=== PATIENT | female | born 1965 | race African-American/Black ===

== ENCOUNTER 2016-09-12 08:11 | Emergency (ER) | payer OTHER ==
--- NOTE | ~2016-09-12 | CT4 ---
[facility] A Service of [facility] RADIOLOGY TEXT RESULTS PATIENT: DORON MEDINA LOCATION: [facility] : 63 UNIT #: [id number] AGE: [address]: Violeta Ramirez APRN SEX: F ORDER DR: [id number] [facility] [address] [facility]. [place], [place] [address] [id number] MR#: [id number] Acc #: [id number] NAME: DORON MEDINA : 1965 SEX: F STUDY DATE/TIME: 09/12/2016 10:19 UNIT: [facility] ROOM: STUDY DESCRIPTION: CT Abd and Pelv Wo Cont Attending Physician: Violeta Ramirez A.P.R.N. Ordering Physician: Janine Pandya M.D. Primary Care Physician: Gloria Phillip A.P.R.N. MEDICAL IMAGING REPORT This report is preliminary unless electronic signature is present EXAM CT abdomen and pelvis without contrast INDICATIONS Abdominal pain for 2 weeks. No comparison. TECHNIQUE Axial 5-mm images were obtained through the abdomen and pelvis without IV or oral contrast. This CT exam was performed with one or more of the following radiation dose reduction techniques: Automatic exposure control, adjustment of mA and/or kV according to patient size, and iterative reconstruction. FINDINGS There is some minimal interstitial prominence in both lung bases medially. This is fairly faint but in the right lower lobe it is about 4.2 cm in diameter and it is possible this could represent an acute infiltrate. There are patchy areas of similar interstitial prominence throughout both lower lobes. The liver, gallbladder, spleen, pancreas, adrenal glands and kidneys are normal. The aorta is normal in size and there is no adenopathy. The appendix is normal. The bowel is normal. The uterus and adnexal regions and bladder are normal. The bones are unremarkable. IMPRESSION 1. Patchy areas of interstitial prominence in both lower lobes, which could be chronic fibrosis or minimal interstitial infiltrates. 2. Normal appendix. 3. No cause for the patient's abdomen pain is identified. Dictated by... Myke Yuen M.D. [facility] A Service of [facility] RADIOLOGY TEXT RESULTS PATIENT: DORON MEDINA LOCATION: [facility] : 63 UNIT #: [id number] AGE: [address]: Violeta Ramirez APRN SEX: F ORDER DR: THIS IS AN ELECTRONICALLY VERIFIED REPORT Myke Yuen M.D. at 09/13/2016 7:26 AM CARL/drake TD: 09/12/2016 17:15 JOB #: [id number] MEDICAL IMAGING REPORT Page 1 of 1 COPY
--- NOTE | ~2016-09-12 | EKG ---
PATIENT: JOSS MEDINANDA UNIT #: [id number] Ventricular Rate: 88 BPM Atrial Rate: 88 BPM P-R Interval: 142 ms QRS Duration: 76 ms Q-T Interval: 350 ms QTC Calculation(Bezet): 423 ms P [place]: 52 degrees Calculated R [place]: 9 degrees Calculated T Brow[place]: 9 degrees Diagnosis Line: Normal sinus rhythm Diagnosis Line: Nonspecific ST and T wave abnormality Diagnosis Line: Abnormal ECG Diagnosis Line: No previous ECGs available Diagnosis Line: Confirmed by PATRICIA OLSEN MD ([id number]) on Diagnosis Line: 09/12/2016 10:18:33 PM INTERPRETING MD: CHRISTINA
[~2016-09-12 08:11] MED LIST: ACTOS PO; ASPIRIN PO; AVANDIA PO; COGENTIN PO; COLACE PO; DEPAKOTE PO; FLEXERIL10 M1 PO; GLUCOTROL PO; HALDOL PO; ORUDIS75 M1 DOB; ZOCOR PO
[2016-09-12 09:02] LABS: POC - CKMB <1.0 ng/mL (0.0-7.9); POC - TROPONIN <0.05 ng/mL (<=0.05)
[2016-09-12 09:14] LABS: URINE SOURCE CLEAN CATCH
[2016-09-12 09:20] LABS: BASOPHIL% 0.3 % (0-2.5); EOSINOPHIL# 0.1 X10e3 (0-0.7); EOSINOPHIL% 0.6 % (0.0-7.0); HEMATOCRIT 34.8 % (35.0-45.0); HEMOGLOBIN 11.7 gm/dL (12.0-16.0); LYMPHOCYTE# 2.7 X10e3 (1.0-3.5); LYMPHOCYTE% 31.4 % (17.0-45.0); MEAN CELL VOLUME 85.3 FL (83-96); MEAN CORPUSCULAR HEMOGLOBIN 28.7 PG (28-34); MEAN CORPUSCULAR HGB CONC 33.6 g/dL (30-36); MEAN PLATELET VOLUME 7.7 FL (6.5-11.5); MONOCYTE# 0.6 X10e3 (0-1.0); MONOCYTE% 7.6 % (3.0-12.0); NEUTROPHIL# 5.1 X10e3 (1.5-7.1); NEUTROPHIL% 60.1 % (40-75); PLATELET COUNT 285 X10e3 (140-420); RED BLOOD COUNT 4.08 X10e (3.90-5.30); RED CELL DISTRIBUTION WIDTH 14.2 % (11.0-15.5); WHITE BLOOD COUNT 8.5 X10e3 (4.0-10.5)
[2016-09-12 09:27] LABS: DIFF IND NO
[2016-09-12 09:30] LABS: URINE APPEARANCE CLOUDY; URINE BLOOD 2+ (NEG); URINE COLOR BROWN; URINE GLUCOSE 100 MG/DL (NORM); URINE KETONE NEG (NEG); URINE LEUKOCYTE ESTERASE 3+ (NEG); URINE NITRATE NEG (NEG); URINE PROTEIN 1+ (NEG); URINE UROBILINOGEN NORM (NORM)
[2016-09-12 09:33] LABS: URINE BILIRUBIN NEG (NEG)
[2016-09-12 09:53] LABS: ALBUMIN SERUM 3.3 g/dL (3.5-5.0); BILIRUBIN, DIRECT 0.1 mg/dL (0.0-0.2); BILIRUBIN,INDIRECT 0.4 mg/dL (0.0-0.9); BILIRUBIN,TOTAL 0.5 mg/dL (0.2-2.0); BUN/CREATININE RATIO 10.55; CALCIUM SERUM 9.1 mg/dL (8.4-10.2); CREATININE SERUM 1.8 mg/dL (0.6-1.4); GLOM FILT RATE Estimated 36.9 mL/min (>60); POTASSIUM 4.3 mmol/L (3.5-5.1); PROTEIN TOTAL SERUM 6.6 g/dL (6.0-8.3)
[2016-09-12 09:59] LABS: CULTURE INDICATED? YES; URBCS1 AUWI 50-100 /[HPF] (0-2); URINE BACTERIA AUWI 3+ (NEGATIVE); URINE SQUAMOUS EPITHELIAL CELL MODERATE /[HPF]; UWBCS1 AUWI 100-200 (0-5)
[2016-09-12 10:00] LABS: URINE AMORPHOUS SEDIMENT AMORP URATES; URINE MUCUS PRESENT; URINE YEAST PRESENT
== END 2016-09-12 11:38 | disposition home or self-care (01) ==
LOC: CED 08:11
PROVIDERS: Nurse Practitioner
DX: N30.00 Acute cystitis without hematuria (principal); E11.22 Type 2 diabetes mellitus with diabetic chronic kidney disease; E78.5 Hyperlipidemia, unspecified; I12.9 Hypertensive chronic kidney disease with stage 1 through stage 4 chronic kidney disease, or unspecified chronic kidney disease; N18.9 Chronic kidney disease, unspecified; F17.210 Nicotine dependence, cigarettes, uncomplicated; Z98.51 Tubal ligation status
CPT/HCPCS: 36415; 74176; 80048; 80076; 81003; 82150; 82553; 83690; 84484; 84703; 85025; 87086; 87088; 87186; 93005; 96361; 96374; 96375; 99284; C9113; J2270; J2405

== ENCOUNTER 2016-09-18 11:00 | Inpatient (IN) | payer OTHER ==
--- NOTE | ~2016-09-18 | CR2 ---
[facility] A Service of [facility] RADIOLOGY TEXT RESULTS PATIENT: DORON MEDINA LOCATION: [place] [address]- : 63 UNIT #: [id number] AGE: [address]: Cindy Pang MD SEX: F ORDER DR: [id number] [facility] [address] [facility]. [place], [place] [address] [id number] I MR#: [id number] Acc #: [id number] NAME: DORON MEDINA : 1965 SEX: F STUDY DATE/TIME: 09/18/2016 12:45 UNIT: [facility] ROOM: [facility] STUDY DESCRIPTION: CR Abdomen Acute Series Attending Physician: Cindy Pang M.D. Ordering Physician: Dwain Nielsen M.D. Primary Care Physician: Marko ChampagneRVlad MEDICAL IMAGING REPORT This report is preliminary unless electronic signature is present EXAM Acute abdomen series with chest. HISTORY SUPPLIED Two week history of abdominal pain, nausea, vomiting and chest congestion. FINDINGS AP chest is performed and is normal. Flat upright views of the abdomen show a large amount of gas present within the colon. There are a few air-filled loops of small bowel within the abdomen as well. The overall pattern is nonspecific. It does not appear to be obstructive. CONCLUSION 1. Normal chest. 2. Mild gaseous distension particularly in the colon which may reflect a mild ileus. There is no radiographic evidence of an obstruction. Dictated by... Robb Nguyen M.D. THIS IS AN ELECTRONICALLY VERIFIED REPORT Robb Nguyen M.D. at 09/19/2016 9:17 AM EVELINE/leesa TD: 09/18/2016 18:21 JOB #: [id number] MEDICAL IMAGING REPORT Page 1 of 1 COPY
--- NOTE | ~2016-09-18 | US5 ---
[facility] A Service of [facility] RADIOLOGY TEXT RESULTS PATIENT: DORON MEDINA LOCATION: [facility]- : 63 UNIT #: [id number] AGE: [address]: Kristine Mares MD SEX: F ORDER DR: [id number] [facility] [address] [facility]. [place], [place] [address] [id number] I MR#: [id number] Acc #: [id number] NAME: DORON MEDINA : 1965 SEX: F STUDY DATE/TIME: 09/18/2016 15:45 UNIT: [facility] ROOM: [facility] STUDY DESCRIPTION: US Abdominal Complete Attending Physician: Cindy Pang M.D. Ordering Physician: Cindy Pang M.D. Primary Care Physician: Marko ChampagneRVlad MEDICAL IMAGING REPORT This report is preliminary unless electronic signature is present EXAM Complete abdominal ultrasound date of study 09/18/[address] abdomen and pelvis 09/12/2016 CLINICAL HISTORY Two week history of abdominal pain. FINDINGS Hepatic parenchymal echotexture is normal. There is no intrahepatic biliary ductal dilatation. The gallbladder is normal without stones, wall thickening or pericholecystic fluid and extrahepatic common duct is normal. The right kidney is normal in size and echotexture without solid mass, calcification or hydronephrosis. The inferior vena cava appears normal. The aorta is normal in caliber. The distal aorta is partially obscured by bowel gas. The left kidney is normal in size and echotexture without mass, calcification or hydronephrosis. The spleen is normal in size. IMPRESSION Normal negative complete abdominal ultrasound. Dictated by... Fidel Sales M.D. THIS IS AN ELECTRONICALLY VERIFIED REPORT Fidel Sales M.D. at 09/28/2016 4:00 PM TEV/rnr [facility] A Service of [facility] RADIOLOGY TEXT RESULTS PATIENT: ADAM,URONDA LOCATION: [facility] 472-01 : 63 UNIT #: [id number] AGE: [address]: Kristine Mares MD SEX: F ORDER DR: TD: 09/18/2016 23:35 JOB #: [id number] MEDICAL IMAGING REPORT Page 1 of 1 COPY
--- NOTE | ~2016-09-18 | EKG ---
PATIENT: ADAM URONDA UNIT #: [id number] Ventricular Rate: 88 BPM Atrial Rate: 88 BPM P-R Interval: 146 ms QRS Duration: 76 ms Q-T Interval: 340 ms QTC Calculation(Bezet): 411 ms P [place]: 41 degrees Calculated R [place]: 2 degrees Calculated T [place]: 12 degrees Diagnosis Line: Normal sinus rhythm Diagnosis Line: Possible Anterior infarct , age undetermined Diagnosis Line: Abnormal ECG Diagnosis Line: When compared with ECG of 12-SEP-2016 08:50, Diagnosis Line: No significant change was found Diagnosis Line: Confirmed by FARTUN WILLINGHAM MD ([id number]) on 09/19/2016 Diagnosis Line: 4:45:21 PM INTERPRETING MD: MAULIK MCCALLUM
--- NOTE | ~2016-09-18 | CO ---
Unit #: [id number] #: [id number] Patient: DORON MEDINA [id number] [address] [place], [place] [address] [id number] I MR#: [id number] NAME: DORON MEDINA ROOM: [facility] Age: 51 Sex: F Admission Date: 09/18/2016 : 1965 Attending Physician: Kristine Mares M.D. Primary Care Physician: Gloria Phillip A.P.R.N. Consultation Date: 09/18/2016 CONSULTATION REPORT REASON FOR CONSULTATION Hyponatremia and bfejw-[id number] kidney injury. HISTORY OF PRESENT ILLNESS The patient is a 51-year-old female with a prior history of chronic kidney disease state 2-3, with a baseline creatinine ranging from 1.1 to 1.3 over the last couple of years. The patient also has a history of chronic hyponatremia with sodiums ranging between 127 and 130 on outpatient labs. Of note, the patient recently was seen in [facility] on 09/08/2016 by our nurse practitioner, Cele Parker. At that visit she was noted to have a sodium of 130 and a creatinine of 1.3. Prior to that visit, the patient's Lasix had been discontinued by her primary care provider and at that visit on 09/08/2016 her HCTZ was also discontinued because of her persistent hyponatremia. The patient was initially evaluated for chronic kidney disease by my colleague, Dr. Iglesias, in September 2015. At that time her workup included a renal ultrasound which demonstrated no obstruction and 13 cm kidneys bilaterally. She had minimal proteinuria with a urine protein to creatinine ratio of 178 mg/g, negative hepatitis panel and negative HIV and negative S pep. However, she did have a mildly elevated free light chain ratio at 1.75. Per notes she was referred to hematology for this. However, the patient denies ever seeing them in followup. It was felt that her underlying kidney disease was most likely secondary to a combination of microvascular disease from hypertension and diabetes. The patient presented to [facility] this morning with complaint of abdominal pain and cramping, mostly epigastric, as well as nausea, decreased p.o. intake. She did also have an episode of vomiting a few days prior to presentation. Since admission the patient has been on normal saline. Of note, her initial sodium in the emergency room was 123 and has increased to 126 with normal saline. The patient currently states her abdominal pain improved. She is tolerating a clear liquid diet. PAST MEDICAL HISTORY 1. Chronic kidney disease stage 2-3 as above. 2. Type 2 diabetes for approximately 10 years. 3. Hypertension for approximately 10 years. 4. Schizoaffective disorder. 5. Tobacco abuse. 6. The patient also reports a family history positive for malignancy. She denies any kidney disease, diabetes or high blood pressure in her family. SOCIAL HISTORY Positive for tobacco. The patient denies any alcohol or illicit drug use. Unit #: [id number] #: [id number] Patient: GAGE MEDINAA ALLERGIES No known drug allergies. HOME MEDICATIONS 1. Gabapentin 300 mg b.i.d. 2. Norvasc 5 mg daily. 3. Zofran 8 mg t.i.d. p.r.n. 4. Lipitor 40 mg daily. 5. Colace 100 mg daily. 6. Lantus 32 units at bedtime. 7. Folic acid 1 mg daily. 8. Metformin 750 mg. The patient takes 2 tablets daily. 9. Vitamin D3 2000 units daily. 10. Ziprasidone 80 mg b.i.d. 11. Divalproex 500 mg b.i.d. 12. Carvedilol 3.125 mg b.i.d. 13. Benadryl 25 mg at nighttime. 14. Haldol 10 mg b.i.d. 15. Cogentin 1 mg at night. 16. Lisinopril 30 mg daily. REVIEW OF SYSTEMS Negative except as noted in history of present illness. PHYSICAL EXAMINATION GENERAL: The patient is well nourished and in no acute distress. VITALS: Temperature 98.4, blood pressure 106/77, heart rate 86, respiratory rate 16, saturating 95% on room air. HEENT: The patient is normocephalic, atraumatic. Pupils are equal, round and reactive to light. Mucous membranes are dry. NECK: Supple with no jugular venous distension. HEART: Regular rate and rhythm with no murmurs, gallops or rubs. ABDOMEN: Soft, nontender and nondistended with positive bowel sounds. EXTREMITIES: No cyanosis, clubbing or edema. NEUROLOGIC: The patient is alert and oriented times three with no focal deficits. PSYCHIATRIC: The patient is cooperative and has a normal affect. DIAGNOSTIC STUDIES LABORATORY: On admission, sodium 123, potassium 5.3, chloride 93, bicarbonate 22, BUN 15, creatinine 1.8, glucose 211, calcium 9, AST 11, ALT 9, alkaline phosphatase 107, bilirubin 0.2, direct bilirubin less than 0.1, indirect 0.1, total protein 7, albumin 3.4, lipase 58. CBC showed white blood cell count 8.9, hemoglobin 12.2, and platelets 290. Urinalysis showed 1.5 leukocyte esterase, 500 glucose and 1 (1) . Serum osmolarity is 267. Lipid were reviewed and her total cholesterol was 83, triglycerides 100, LDL 37, HDL 26. Urine sodium was 51 and urine osmolarity was 518. ASSESSMENT/PLAN 1. Acute kidney injury on chronic kidney disease. This is most likely from volume depletion. I agree with continued IV fluid resuscitation with normal saline and also would recommend holding lisinopril as well as any diuretic agents. Would hold Metformin. Maintain mean arterial pressure greater than 65. 2. Hyponatremia. It appears this is acute on chronic. The patient has outpatient sodiums ranging from around 127 to 130. Her chronic Unit #: [id number] #: [id number] Patient: DORON MEDINA hyponatremia is most likely exacerbated by volume depletion from her acute illness. Her chronic hyponatremia is likely secondary to medications. Of note, she was recently stopped on HCTZ and has been off for a week and a half, so it is less likely that this was contributing. Would continue to hold HCTZ at this time. Also, the patient had been on Haldol and divalproex, which both can lower sodium as well. Given the chronicity of her hyponatremia, will need to avoid rapid correction and will monitor her sodium closely in the next 24 hours. Would avoid correcting by more than 8 mEq. 3. Patient with a history of abnormal free light chain ratio. At this time will repeat S pep and free light chain ratio. If still abnormal, the patient likely will need hematology followup. Thank you very much for this consultation. We will be happy to follow the patient along with you. Dictated by... Malena Lainez M.D. DJChato/gz TD: 09/20/2016 09:31 JOB #: [id number] CONSULTATION REPORT Page 1 of 1 X X CONSULTATION REPORT
--- NOTE | ~2016-09-18 | CO ---
Unit #: [id number] #: [id number] Patient: DORON MEDINA [id number] [address] [place], [place] [address] [id number] I MR#: [id number] NAME: DORON MEDINA ROOM: 472 Age: 51 Sex: F Admission Date: 09/18/2016 : 1965 Attending Physician: Kristine Mares M.D. Primary Care Physician: Gloria Phillip A.P.R.N. Consultation Date: 09/20/2016 CONSULTATION REPORT REASON FOR CONSULTATION Anxiety, depression, and schizophrenia. HISTORY OF PRESENT ILLNESS Ms. Verde is a 51-year-old female, seen on 09/20/2016 in room 472, bed 1 at [facility]. The patient's and a friend were in the room. The patient is lying comfortably in bed, dressed in hospital attire. The patient reports that she carries a diagnosis of anxiety disorder, but according to the H and P the patient has a history of schizophrenia, currently on Haldol. The patient reported that she was admitted with abdominal pain. The patient has a history of diabetes, hypertension, hyperlipidemia, and schizophrenia. The patient reports that she is feeling better. Denied any side effects from medication. Taking her medication regularly. Currently, denied any hallucination or any thoughts of harming self or others. The patient denied any use of any drugs or alcohol. PAST PSYCHIATRIC HISTORY Remarkable for history of depression and schizophrenia, followed by Dr. Grady. MEDICAL HISTORY Remarkable for history of uncontrolled diabetes, hypertension, hyperlipidemia, and schizophrenia. The patient echo showed ejection fraction 55%. MEDICATIONS Gabapentin 300 mg t.i.d., Norvasc, Zofran, Lipitor, Colace, hydrochlorothiazide, Lantus, folic acid, metformin, vitamin D3, Geodon 80 mg b.i.d., divalproex 500 mg b.i.d., carvedilol, Benadryl, haloperidol 5 mg daily, Cogentin 1 mg at bedtime, lisinopril. ALLERGIES No known drug allergies. SUBSTANCE ABUSE HISTORY None. FAMILY HISTORY AND SOCIAL HISTORY The patient has a good support system from family. No history of abuse. No history of any substance abuse. REVIEW OF SYSTEMS Complete review of system is unremarkable. Unit #: [id number] #: [id number] Patient: DORON MEDINA MENTAL STATUS EXAMINATION Vital signs; temperature 98.1, pulse 107, blood pressure 137/85, and oxygen saturation 97%. General appearance; the patient moderately obese, lying comfortably in bed, pleasant, cooperative. Attention span and concentration, fair. Speech; slow in rate and volume, monotone. Oriented in time, place, and person. Mood and affect; sad, dysphoric, flat. Thought process, coherent. Denied any thoughts of harming self or others, but somewhat guarded. Denied any hallucination. Recent and remote memory, fair. Language, intact. Fund of knowledge, fair. Insight and judgment, fair to slightly impaired. DIAGNOSES Psychiatric: 1. Schizophrenia, chronic paranoid type, F20.0. 2. Anxiety disorder, not otherwise specified, F40.01. 3. Mood disorder, not otherwise specified, F32.9. Secondary diagnosis: Deferred. Medical diagnosis: Please refer to H and P. Stressors: Psychosocial stressors. ASSESSMENT/PLAN 1. Supportive psychotherapy and psychoeducation provided to the patient. 2. Educated about benefits and side effects of medication and course and prognosis of illness. 3. Advised to continue with current combination of medication at this time such as Cogentin 1 mg at bedtime, Geodon 80 mg b.i.d., Depakote 500 mg b.i.d., and Haldol. Please feel free to call if any question, telephone #[phone]. Dictated by... Verito Josue/lili TD: 09/21/2016 02:31 JOB #: [id number] CONSULTATION REPORT Page 1 of 1 X Jose Jeffery MD CONSULTATION REPORT
--- NOTE | ~2016-09-18 | HP ---
Unit #: [id number] #: [id number] Patient: DORON MEDINA [id number] [place] [address] [facility]. [place], [place] [address] [id number] I MR#: [id number] NAME: DORON MEDINA ROOM: 94317 Age: 51 Sex: F Admission Date: 09/18/2016 : 1965 Attending Physician: Cindy Pang M.D. Primary Care Physician: Gloria Phillip A.P.R.N. HISTORY AND PHYSICAL CHIEF COMPLAINT Abdominal pain. HISTORY OF PRESENT ILLNESS The patient is a 51-year-old female with a past medical history of diabetes, hypertension, hyperlipidemia, schizophrenia, who presented to the emergency department for evaluation of the above. The patient states that she has had a two week history of abdominal pain. She states that it is in her upper abdomen. She describes it as "cramping." It has been fairly constant in nature. It is exacerbated by eating. There are no alleviating factors. She denies any similar pain. She has had some emesis but none within the past 24 hours. She has been constipated. She thinks her last bowel movement was several days ago. She denies any fever, no cough or cold symptoms. Of note, the patient was seen at [facility] September 12, 2016, for abdominal pain. She was discharged home. She did have a CT of the abdomen and pelvis that day that showed no cause for the patient's abdominal pain. Lipase was 138, amylase 157. Today, acute abdominal series was done and showed findings concerning for possible mild ileus. Sodium was 123, potassium 5.3, lipase of 58. She was given 1 L of normal saline as well as 20 mg of Bentyl, 4 mg of morphine and 4 mg of Zofran. She is being admitted to [facility] for evaluation and further treatment. PAST MEDICAL HISTORY 1. Admission to [facility] more than five years ago for what sounds like small bowel obstruction (no records). 2. Admission to [facility] August 28, 2007, for uncontrolled diabetes. 3. Diabetes. 4. Hypertension. 5. Hyperlipidemia. 6. Schizophrenia, followed by Dr. Grady. 7. Echocardiogram August 29, 2007, was technically limited but showed an ejection fraction of 55%. Mild concentric left ventricular hypertrophy was present. PAST SURGICAL HISTORY Bilateral tubal ligation. SOCIAL HISTORY The patient lives with her . She smokes a half pack of cigarettes Unit #: [id number] #: [id number] Patient: DORON MEDINA daily. She denies alcohol or illicit drug use. FAMILY HISTORY Notable for malignancy. ALLERGIES No known allergies. HOME MEDICATIONS 1. Gabapentin 300 mg twice daily. 2. Norvasc 5 mg daily. 3. Zofran 8 mg t.i.d. 4. Lipitor 40 mg daily. 5. Colace 100 mg daily. 6. Hydrochlorothiazide 25 mg daily. 7. Lantus 32 units at bedtime. 8. Folic acid 1 mg daily. 9. Metformin 2 mg daily. 10. Vitamin D3 2000 units daily. 11. Ziprasidone 80 mg twice daily. 12. Divalproex 500 mg twice daily. 13. Carvedilol 3.125 mg twice daily. 14. Benadryl 25 mg at bedtime. 15. Haloperidol 5 mg daily. 16. Cogentin 1 mg at bedtime. 17. Lisinopril 30 mg daily. REVIEW OF SYSTEMS A complete review of systems is negative except as indicated in the HPI. The patient denies any change in her medications. DIAGNOSTIC STUDIES CARDIOVASCULAR: EKG shows normal sinus rhythm with a rate of 88 beats/minute. IMAGING: Acute abdominal series showed findings concerning for possible mild ileus. CT of the abdomen and pelvis from September 12, 2016, showed no cause for the abdominal pain. LABORATORY: Urine culture from September 12 showed greater than 100,000 E. coli that was ly sensitive. Complete blood count from today is completely normal. Comprehensive metabolic panel notable for sodium of 123, potassium is 5.3, chloride 93, glucose 211, BUN and creatinine 15 and 1.8 respectively, alkaline phosphatase 107, albumin 3.4, lipase 58. Urinalysis today shows 1+ leukocyte esterase, 500 glucose. Troponin is less than 0.05. PHYSICAL EXAMINATION VITAL SIGNS: Temperature is 98.3, pulse 90, respirations 17, blood pressure 101/61. Oxygen saturation 97% on room air. GENERAL: The patient is an -German female who is awake and alert, in no acute distress. Unit #: [id number] #: [id number] Patient: DORON MEDINA HEENT: The head is atraumatic. Mucous membranes are dry. NECK: Supple. Trachea is midline. CARDIOVASCULAR: Regular rate and rhythm. LUNGS: Clear to auscultation bilaterally with no increased work of breathing. ABDOMEN: Mildly distended. She is mildly tender to palpation in the epigastric region. Bowel sounds are somewhat decreased. NEUROLOGICAL: The patient is awake and alert. She follows commands. PSYCH: Mood and affect are normal. The patient is cooperative. SKIN: Skin of examined areas is warm and dry. ASSESSMENT The patient is a 51-year-old female with: 1. Acute pancreatitis: Lipase is mildly elevated. It was 138 on September 12, it is 58 today. 2. Hyponatremia: The patient's sodium has been as low as 126 on August 28, 2007. It is 123 today. She is on Haldol which could be contributing. She is also on hydrochlorothiazide. Additionally, she is somewhat volume depleted due to decreased p.o. intake. 3. Hyperkalemia. 4. Acute kidney injury: The patient's creatinine was 1.1 on August 28, 2007. It is 1.8 today. The patient is on metformin as well as lisinopril which could be contributing. 5. Diabetes. 6. Hypertension. 7. Hyperlipidemia. 8. Schizophrenia. 9. Tobacco abuse. 10. Urinary tract infection: Urine culture from September 12, 2016, grew greater than 100,000 E. coli that was ly sensitive. PLAN 1. Admit to intermediate level. 2. NPO. 3. Normal saline at 125 mL/hour. 4. P.r.n. morphine. 5. P.r.n. Zofran. 6. Check right upper quadrant ultrasound. 7. Fasting lipid panel. 8. Urine sodium and osmolality. 9. Serum osmolality. 10. Repeat BMP later this evening. 11. Consult Dr. Marte regarding hyponatremia. 12. Hemoglobin A1c. 13. Low dose sliding scale insulin with Accu-Cheks. 14. Serial cardiac enzymes. 15. Neuro checks. 16. Urine culture and sensitivity on urine in the lab. 17. Rocephin 1 gm IV daily pending results of urine culture. 18. Repeat labs in the morning. 19. SCDs for DVT prophylaxis. 20. Additional workup and consultants based on above. Dictated by Cindy Pang M.D. Unit #: [id number] #: [id number] Patient: DORON MEDINA JOSE/aby TD: 09/18/2016 15:32 JOB #: [id number] HISTORY AND PHYSICAL Page 1 of 1 X Cindy Pang MD X HISTORY AND PHYSICAL
--- NOTE | ~2016-09-18 | DS ---
Unit #: [id number] #: [id number] Patient: DORON MEDINA [id number] [address] [address] [id number] I MR#: [id number] NAME: DORON MEDINA ROOM: 47 Age: 51 Sex: F Admission Date: 09/18/2016 : 1965 Discharge Date: Attending Physician: Kristine Mares M.D. Primary Care Physician: Luther Champagne.P.RShahramN. DISCHARGE SUMMARY DISCHARGE DIAGNOSES 1. Acute pancreatitis, mild, likely secondary to hydrochlorothiazide. 2. 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 3. Acute kidney injury. 4. Hyperkalemia. 5. Diabetes mellitus type 2, uncontrolled. 6. Hypertension. 7. Hyperlipidemia. 8. Schizophrenia. 9. Smoking. 10. Urinary tract infection with Escherichia coli. 11. Mild protein malnutrition. 12. Hypovolemia, secondary to poor p.o. intake. 13. Metabolic acidosis. 14. Mild ileus. CONSULTATIONS 1. Dr. Jeffery. 2. Dr. Hernandes. PROCEDURE None. DIAGNOSTIC STUDIES LABORATORY: Glucose 118, sodium 124, potassium 5.1, creatinine 1.4, albumin 2.8, lipase 33. WBC 11.9, hemoglobin 10.4, platelets 233,000. IMAGING: CAT scan of the abdomen shows bilateral patchy interstitial prominence, likely chronic fibrosis. Ultrasound of abdomen: Negative. Ultrasound of the kidneys: Negative. ALLERGIES None. DISCHARGE MEDICATIONS 1. Colace 100 p.o. daily. 2. Geodon 80 p.o. b.i.d. 3. Zofran 8 mg p.o. three times daily p.r.n. nausea. 4. Lipitor 40 daily. Unit #: [id number] #: [id number] Patient: DORON MEDINA 5. Lantus 16 units subcutaneous at bedtime. 6. Folic acid 1 mg daily. 7. Vitamin D3 at 2000 daily. 8. Nitrofurantoin 100 p.o. b.i.d. HOSPITALIZATION COURSE A 51 year old admitted because of abdominal pain. Acute mild pancreatitis, likely secondary to hydrochlorothiazide. Ultrasound and CT negative for gallstones. Patient denies using any alcohol abuse. Patient was kept NPO. IV fluids given. Currently, she wants to eat. I am going to put her on low-fat diet. Acute kidney injury: Nonoliguric, likely secondary to hypovolemia, prerenal. Patient received IV fluids. Currently resolved. Hyponatremia: Likely secondary to volume depletion with chronic hyponatremia from medicines and SIADH. Most of the psychiatric medications have been adjusted as per Dr. Jeffery's recommendations. Hypokalemia: Replace with p.o. potassium. E. coli with urinary tract infection: Patient received Rocephin. Continue with nitrofurantoin. Mild ileus likely from pancreatitis, resolved. Diabetes mellitus type 2: Uncontrolled. Continue with Lantus. Electrolyte imbalance: Replace. Metabolic acidosis from volume depletion: Patient received IV fluids. Schizophrenia: The patient is seen by Dr. Jeffery. He told to continue with Tala for now. DISCHARGE INSTRUCTIONS Patient will follow her psychiatrist in few days time. Follow with Dr. Rogel, nephrology, in one week time. Follow with family physician in one week time. Patient will have BMP in one week time and follow with Dr. Rogel or PCP in one week time. Continue with low-fat diet at home. Continue with 1000 mL fluid restriction per day. Discussed with psychiatrist, Dr. Jeffery, about her medications. Discharge time taken is 32 minutes. Dictated by... Verito Mccain/daniela TD: 09/20/2016 15:44 JOB #: [id number] Unit #: [id number] #: [id number] Patient: DORON MEDINA DISCHARGE SUMMARY Page 1 of 1 X Kristine Mares MD X DISCHARGE SUMMARY
--- NOTE | ~2016-09-18 | US77 ---
[facility] A Service of [facility] RADIOLOGY TEXT RESULTS PATIENT: DORON MEDINA LOCATION: [place] [address] : [birth year] UNIT #: [id number] AGE: [address]: Kristine Mares MD SEX: F ORDER DR: [id number] [facility] [address] [place], [place] [address] [id number] MR#: [id number] Acc #: [id number] NAME: DORON MEDINA : 1965 SEX: F STUDY DATE/TIME: 09/19/2016 11:51 UNIT: [facility] ROOM: [facility] STUDY DESCRIPTION: US Kidney Bilateral Complete Attending Physician: Cindy Pang M.D. Ordering Physician: Cindy Pang M.D. Primary Care Physician: Gloria Phillip A.P.R.N. MEDICAL IMAGING REPORT This report is preliminary unless electronic signature is present EXAM Bilateral renal ultrasound HISTORY Abdominal pain for 1 week with renal failure. FINDINGS Longitudinal and transverse sonograms of the kidneys are obtained. The right kidney appears sonographically normal measuring 12.4 cm. The left kidney appears sonographically normal measuring 11.7 cm. There is no hydronephrosis or obstruction. There are no perinephric fluid collections. The bladder is completely decompressed by a Morales catheter. CONCLUSION Normal. Dictated by... Robb Nguyen M.D. THIS IS AN ELECTRONICALLY VERIFIED REPORT Robb Nguyen M.D. at 09/23/2016 7:15 AM Luís TD: 09/19/2016 20:29 JOB #: [id number] MEDICAL IMAGING REPORT Page 1 of 1 COPY
[2016-09-18 11:52] LABS: BASOPHIL# 0.1 X10e3 (0-0.3); BASOPHIL% 0.9 % (0-2.5); DIFF IND NO; EOSINOPHIL# 0.1 X10e3 (0-0.7); EOSINOPHIL% 0.7 % (0.0-7.0); HEMATOCRIT 36.4 % (35.0-45.0); HEMOGLOBIN 12.2 gm/dL (12.0-16.0); LYMPHOCYTE# 3.2 X10e3 (1.0-3.5); LYMPHOCYTE% 35.5 % (17.0-45.0); MEAN CELL VOLUME 84.7 FL (83-96); MEAN CORPUSCULAR HEMOGLOBIN 28.5 PG (28-34); MEAN CORPUSCULAR HGB CONC 33.6 g/dL (30-36); MEAN PLATELET VOLUME 7.7 FL (6.5-11.5); MONOCYTE# 0.9 X10e3 (0-1.0); MONOCYTE% 9.6 % (3.0-12.0); NEUTROPHIL# 4.8 X10e3 (1.5-7.1); NEUTROPHIL% 53.3 % (40-75); PLATELET COUNT 290 X10e3 (140-420); RED CELL DISTRIBUTION WIDTH 14.3 % (11.0-15.5); WHITE BLOOD COUNT 8.9 X10e3 (4.0-10.5)
[2016-09-18 12:31] LABS: ALBUMIN SERUM 3.4 g/dL (3.5-5.0); ALKALINE PHOSPHATASE 107 U/L (32-92); ALT (SGPT) 9 U/L (10-40); AST (SGOT) 11 U/L (10-42); BILIRUBIN,TOTAL 0.2 mg/dL (0.2-2.0); BLOOD UREA NITROGEN 15 mg/dL (9-23); BUN/CREATININE RATIO 8.33; CARBON DIOXIDE 22 mmol/L (22-31); CHLORIDE 93 mmol/L (100-111); CREATININE SERUM 1.8 mg/dL (0.6-1.4); GLOM FILT RATE Estimated 36.9 mL/min (>60); GLUCOSE FASTING 211 mg/dL (70-110); LIPASE 58 U/L (22-51); POTASSIUM 5.3 mmol/L (3.5-5.1)
[2016-09-18 12:34] LABS: BILIRUBIN, DIRECT <0.1 mg/dL (0.0-0.2); BILIRUBIN,INDIRECT 0.1 mg/dL (0.0-0.9); SODIUM 123 mmol/L (135-145)
[2016-09-18 13:04] LABS: URINE SOURCE CLEAN CATCH
[2016-09-18 13:18] LABS: URINE APPEARANCE TURBID; URINE BILIRUBIN NEG (NEG); URINE BLOOD NEG (NEG); URINE COLOR YELLOW; URINE GLUCOSE 500 MG/DL (NEG); URINE KETONE NEG (NEG); URINE LEUKOCYTE ESTERASE 1+ (NEG); URINE NITRATE NEG (NEG); URINE PROTEIN NEG (NEG); URINE SPECIFIC GRAVITY 1.026 (1.003-1.035)
[2016-09-18 13:23] LABS: CULTURE INDICATED? NO
[2016-09-18 13:56] LABS: POC - CKMB <1.0 ng/mL (0.0-7.9); POC - TROPONIN <0.05 ng/mL (<=0.05)
[2016-09-18] MEDS ORDERED: NORVASC PO (13:57)
[2016-09-18] MEDS ORDERED: GABAPENTIN300 MG PO (13:57)
[2016-09-18] MEDS ORDERED: DOCUSATE SODIU100 MG PO (13:58)
[2016-09-18] MEDS ORDERED: ZOFRAN8 MG PO (13:58)
[2016-09-18] MEDS ORDERED: LIPITOR40 MG PO (13:58)
[2016-09-18] MEDS ORDERED: HYDROCHLOROTHIA25 MG PO (13:59)
[2016-09-18] MEDS ORDERED: FOLIC ACID1 MG PO (14:00)
[2016-09-18] MEDS ORDERED: LANTUS100 U/ML SUBQ (14:00)
[2016-09-18] MEDS ORDERED: METFORMIN HCL750 MG PO (14:01)
[2016-09-18] MEDS ORDERED: VITAMIN D32000 UNIT PO (14:01)
[2016-09-18] MEDS ORDERED: ZIPRASIDONE HCL80 MG PO (14:02)
[2016-09-18] MEDS ORDERED: DIVALPROEX SOD500 MG PO (14:06)
[2016-09-18] MEDS ORDERED: BENADRYL25 M1 PO (14:07)
[2016-09-18] MEDS ORDERED: CARVEDILOL3.125 MG PO (14:07)
[2016-09-18] MEDS ORDERED: HALDOL PO (14:07)
[2016-09-18] MEDS ORDERED: LISINOPRIL30 MG PO (14:08)
[2016-09-18] MEDS ORDERED: COGENTIN1 M1 PO (14:12)
[2016-09-18 14:21] LABS: POC - CKMB 3.6 ng/mL (0.0-7.9); POC - TROPONIN <0.05 ng/mL (<=0.05)
[2016-09-18 15:33] LABS: CHOLESTEROL 83 mg/dL (0-200); HDL CHOLESTEROL 26 mg/dL (35-95); LDL CHOLESTEROL 37 mg/dL (-130); LDL/HDL RATIO 1 RATIO (0-4); TRIGLYCERIDES 100 mg/dL (10-160)
[2016-09-18 18:08] LABS: CALCIUM SERUM 8.8 mg/dL (8.4-10.2); CREATININE SERUM 1.6 mg/dL (0.6-1.4); GLOM FILT RATE Estimated 42.5 mL/min (>60); POTASSIUM 5.2 mmol/L (3.5-5.1)
[2016-09-18 20:53] LABS: %MB 1.5 % (0.0-4.0); MB 1.2 ng/ml
[2016-09-19 03:23] LABS: BASOPHIL% 0.3 % (0-2.5); EOSINOPHIL% 0.3 % (0.0-7.0); HEMATOCRIT 33.2 % (35.0-45.0); LYMPHOCYTE% 28.2 % (17.0-45.0); MEAN CELL VOLUME 86.1 FL (83-96); MEAN CORPUSCULAR HEMOGLOBIN 28.5 PG (28-34); MEAN CORPUSCULAR HGB CONC 33.1 g/dL (30-36); MEAN PLATELET VOLUME 7.5 FL (6.5-11.5); MONOCYTE# 1.2 X10e3 (0-1.0); MONOCYTE% 10.9 % (3.0-12.0); NEUTROPHIL# 6.5 X10e3 (1.5-7.1); NEUTROPHIL% 60.3 % (40-75); PLATELET COUNT 258 X10e3 (140-420); RED BLOOD COUNT 3.86 X10e (3.90-5.30); RED CELL DISTRIBUTION WIDTH 14.3 % (11.0-15.5); WHITE BLOOD COUNT 10.8 X10e3 (4.0-10.5)
[2016-09-19 03:24] LABS: DIFF IND NO
[2016-09-19 03:44] LABS: ALBUMIN SERUM 3.1 g/dL (3.5-5.0); BILIRUBIN,TOTAL 0.2 mg/dL (0.2-2.0); BUN/CREATININE RATIO 6.42; CALCIUM SERUM 8.3 mg/dL (8.4-10.2); CREATININE SERUM 2.8 mg/dL (0.6-1.4); GLOM FILT RATE Estimated 21.6 mL/min (>60); POTASSIUM 5.2 mmol/L (3.5-5.1); PROTEIN TOTAL SERUM 6.7 g/dL (6.0-8.3)
[2016-09-19 04:01] LABS: %MB 1.9 % (0.0-4.0); MB 1.6 ng/ml
[2016-09-19 10:26] LABS: CREATININE,RANDOM URINE 198 mg/dL
[2016-09-19 10:33] LABS: OSMOLALITY,URINE 380 mOsmo/kg (250-900)
[2016-09-19 11:03] LABS: ALBUMIN SERUM 3.1 g/dL (3.5-5.0); BILIRUBIN,TOTAL 0.1 mg/dL (0.2-2.0); BUN/CREATININE RATIO 6.92; CALCIUM SERUM 8.2 mg/dL (8.4-10.2); CREATININE SERUM 2.6 mg/dL (0.6-1.4); GLOM FILT RATE Estimated 23.6 mL/min (>60); POTASSIUM 5.4 mmol/L (3.5-5.1); PROTEIN TOTAL SERUM 6.4 g/dL (6.0-8.3)
[2016-09-19 23:42] LABS: BUN/CREATININE RATIO 9.41; CALCIUM SERUM 8.4 mg/dL (8.4-10.2); CREATININE SERUM 1.7 mg/dL (0.6-1.4); GLOM FILT RATE Estimated 39.5 mL/min (>60); POTASSIUM 5.3 mmol/L (3.5-5.1); URIC ACID 7.5 mg/dL (2.6-7.2)
[2016-09-20 04:03] LABS: BASOPHIL% 0.4 % (0-2.5); EOSINOPHIL% 0.3 % (0.0-7.0); HEMATOCRIT 30.5 % (35.0-45.0); HEMOGLOBIN 10.4 gm/dL (12.0-16.0); LYMPHOCYTE# 2.1 X10e3 (1.0-3.5); LYMPHOCYTE% 17.8 % (17.0-45.0); MEAN CELL VOLUME 84.2 FL (83-96); MEAN CORPUSCULAR HEMOGLOBIN 28.7 PG (28-34); MEAN CORPUSCULAR HGB CONC 34.2 g/dL (30-36); MEAN PLATELET VOLUME 7.4 FL (6.5-11.5); MONOCYTE# 1.8 X10e3 (0-1.0); NEUTROPHIL# 7.9 X10e3 (1.5-7.1); NEUTROPHIL% 66.5 % (40-75); PLATELET COUNT 233 X10e3 (140-420); RED BLOOD COUNT 3.63 X10e (3.90-5.30); RED CELL DISTRIBUTION WIDTH 14.1 % (11.0-15.5); WHITE BLOOD COUNT 11.9 X10e3 (4.0-10.5)
[2016-09-20 04:09] LABS: DIFF IND NO
[2016-09-20 04:27] LABS: ALBUMIN SERUM 2.8 g/dL (3.5-5.0); BILIRUBIN,TOTAL 0.6 mg/dL (0.2-2.0); CALCIUM SERUM 8.6 mg/dL (8.4-10.2); CREATININE SERUM 1.4 mg/dL (0.6-1.4); GLOM FILT RATE Estimated 49.9 mL/min (>60); POTASSIUM 5.1 mmol/L (3.5-5.1); PROTEIN TOTAL SERUM 6.1 g/dL (6.0-8.3)
[2016-09-20] MEDS ORDERED: NITROFURANTOIN100 M3 PO (15:36)
[2016-09-22 05:01] LABS: SPE A1GLOB (PNL) 0.3 g/dL (0.2-0.3); SPE A2GLOB (PNL) 0.7 g/dL (0.5-0.9); SPE ALB (PNL) 3.4 g/dL (3.8-4.8); SPE BETA 1 GLOBULIN 0.5 g/dL (0.4-0.6); SPE BETA 2 GLOBULIN 0.4 g/dL (0.2-0.5); SPE GAMMA (PNL) 1.3 g/dL (0.8-1.7); SPETP (PNL) 6.6 g/dL (6.1-8.1)
== END 2016-09-20 16:30 | disposition home or self-care (01) | DRG 439 ==
LOC: CED 11:00 → CEDOF 14:25 → CED 14:47 → C4C 16:08 → CEDOF 16:08 → C4C 09-20 08:31
PROVIDERS: Emergency Medicine; Family Medicine; Internal Medicine; Internal Medicine Nephrology
DX: K85.90 Acute pancreatitis without necrosis or infection, unspecified (principal); E87.1 Hypo-osmolality and hyponatremia; E11.22 Type 2 diabetes mellitus with diabetic chronic kidney disease; E87.2 Acidosis; N17.9 Acute kidney failure, unspecified; N18.3 Chronic kidney disease, stage 3 (moderate); E11.65 Type 2 diabetes mellitus with hyperglycemia; K56.7 Ileus, unspecified; N39.0 Urinary tract infection, site not specified; E87.5 Hyperkalemia; Z79.84 Long term (current) use of oral hypoglycemic drugs; E78.5 Hyperlipidemia, unspecified; F20.9 Schizophrenia, unspecified; Z98.51 Tubal ligation status; F17.210 Nicotine dependence, cigarettes, uncomplicated; B96.20 Unspecified Escherichia coli [E. coli] as the cause of diseases classified elsewhere; F41.9 Anxiety disorder, unspecified; F32.9 Major depressive disorder, single episode, unspecified; F39 Unspecified mood [affective] disorder; I12.9 Hypertensive chronic kidney disease with stage 1 through stage 4 chronic kidney disease, or unspecified chronic kidney disease; T50.2X5A Adverse effect of carbonic-anhydrase inhibitors, benzothiadiazides and other diuretics, initial encounter; E86.1 Hypovolemia
CPT/HCPCS: 36415; 74022; 76700; 76770; 80048; 80053; 80061; 80076; 80164; 81003; 82150; 82533; 82550; 82553; 82570; 82947; 83036; 83690; 83930; 83935; 84165; 84300; 84443; 84484; 84550; 85025; 87086; 93005; 96372; 99285; J0500; J0696; J1815; J2270; J2405